=== PATIENT | female | born 1990 | race Two or more races ===

== ENCOUNTER 2017-03-06 06:34 | Emergency (ER) | payer BC ==
[2017-03-06 07:26] VITALS: TEMP 98.2; BMI 29.7
--- NOTE | 2017-03-06 08:13 | PDOC ---
History of Present Illness - General History Source: Patient Exam Limitations: No Limitations - History of Present Illness Initial Comments: 03/06/17 08:52 The patient is a 26 year old female (8 weeks), with no significant past medical history who presents to the emergency department with vaginal bleeding today. Patient reports pink vaginal spotting which began this morning with no associated pain. Patient admits to previous episodes of vaginal bleeding however this feels different and presents to the ED for further evaluation. Patient has been to her family service center director for her bleeding which eventually resolved. Patients next Light Fixture Servicer appointment is next week. Upon evaluation, patients bleeding has stopped. LMP 01/05/17 Patient denies chest pain, headache or dizziness. Patient denies fever, chills, abdominal pain, nausea, vomit, diarrhea or constipation. Patient denies dysuria , frequency, urgency or hematuria. Patient denies sick contacts or recent travel. Allergies: NKA Past surgical history: None Social history: None <Gwendolyn Callahan - Last Filed: 03/06/17 08:52> <Michelle Xie - Last Filed: 03/06/17 10:06> - General Chief Complaint: Vaginal Bleeding Stated Complaint: 8 WEEKS , BLEEDING Time Seen by Provider: 03/06/17 08:13 Past History <Gwendolyn Callahan - Last Filed: 03/06/17 08:52> - Past Medical History COPD: No DVT: No - Reproductive History Is Patient Now?: Yes (#): 2 Para: 0 Therapeutic (s) & number: No Spontaneous : 1 - Immunization History Immunization Up to Date: Yes - Suicide/Smoking/Psychosocial Hx Smoking History: Never smoked Information on smoking cessation initiated: No Hx Alcohol Use: No Drug/Substance Use Hx: No Substance Use Type: None <Michelle Xie - Last Filed: 03/06/17 10:06> - Past Medical History Allergies/Adverse Reactions: Allergies Allergy/AdvReac Type Severity Reaction Status Date / Time No Known Allergies Allergy Verified 03/06/17 07:15 Home Medications: Ambulatory Orders 105/Iron/Folic AC/Dha [Prena1 True Combo Pack] 1 each PO DAILY Review of Systems - Review of Systems Able to Perform ROS?: Yes Comments:: 03/06/17 08:52 GENERAL/CONSTITUTIONAL: No fever or chills. No weakness. HEAD, EYES, EARS, NOSE AND THROAT: No change in vision. No ear pain or discharge. No sore throat. CARDIOVASCULAR: No chest pain or shortness of breath. RESPIRATORY: No cough, wheezing, or hemoptysis. GASTROINTESTINAL: No nausea, vomiting, diarrhea or constipation. GENITOURINARY: No dysuria, frequency, or change in urination. MUSCULOSKELETAL: No joint or muscle swelling or pain. No neck or back pain. SKIN: No rash NEUROLOGIC: No headache, vertigo, loss of consciousness, or change in strength/ sensation. ENDOCRINE: No increased thirst. No abnormal weight change. HEMATOLOGIC/LYMPHATIC: No anemia, easy bleeding, or history of blood clots. ALLERGIC/IMMUNOLOGIC: No hives or skin allergy. : + Grace vaginal spotting. <Gwendolyn Callahan - Last Filed: 03/06/17 08:52> *Physical Exam - Vital Signs Last Vital Signs Temp Pulse Resp BP Pulse Ox 98.2 F 80 17 126/89 100 03/06/17 07:16 03/06/17 07:16 03/06/17 07:16 03/06/17 07:16 03/06/17 07:16 - Physical Exam Comments: 03/06/17 08:52 GENERAL: Awake, alert, and fully oriented, in no acute distress HEAD: No signs of trauma EYES: PERRLA, EOMI, sclera anicteric, conjunctiva clear ENT: Auricles normal inspection, hearing grossly normal, nares patent, oropharynx clear without exudates. Moist mucosa NECK: Normal ROM, supple, no lymphadenopathy, JVD, or masses LUNGS: Breath sounds equal, clear to auscultation bilaterally. No wheezes, and no crackles HEART: Regular rate and rhythm, normal S1 and S2, no murmurs, rubs or gallops ABDOMEN: Soft, nontender, normoactive bowel sounds. No guarding, no rebound. No masses EXTREMITIES: Normal range of motion, no edema. No clubbing or cyanosis. No cords, erythema, or tenderness NEUROLOGICAL: Cranial nerves II through XII grossly intact. Normal speech, normal gait SKIN: Warm, Dry, normal turgor, no rashes or lesions noted. PELVIC: +Small amount of brownish blood in vaginal vault. Cervical oss is closed. No CMT. No adnexal tenderness. <Gwendolyn Callahan - Last Filed: 03/06/17 08:52> - Vital Signs Last Vital Signs Temp Pulse Resp BP Pulse Ox 98.2 F 80 17 126/89 100 03/06/17 07:16 03/06/17 07:16 03/06/17 07:16 03/06/17 07:16 03/06/17 07:16 <Michelle Xie - Last Filed: 03/06/17 10:06> ED Treatment Course - LABORATORY CBC & Chemistry Diagram: 03/06/17 08:40 03/06/17 08:40 <Michelle Xie - Last Filed: 03/06/17 10:06> Medical Decision Making - Medical Decision Making 03/06/17 10:02 Pt presents to the ED complaining of vaginal spotting that started today. Denies abdominal pain, fever, nausea or vomiting or urinary complaints. Os closed on pelvic exam. US performed to rule out ectopic and shows live IUP. Will discharge patient home. She will follow iup with her OB on Friday. <Michelle Xie - Last Filed: 03/06/17 10:06> *DC/Admit/Observation/Transfer - Attestations Scribe Attestion: 03/06/17 08:53 Documentation prepared by Gwendolyn Callahan, acting as medical care administrator for Michelle Xie MD <Gwendolyn Callahan - Last Filed: 03/06/17 08:52> - Discharge Dispostion Admit: No <Michelle Xie - Last Filed: 03/06/17 10:06> Diagnosis at time of Disposition: Threatened - Discharge Dispostion Disposition: HOME Condition at time of disposition: Good - Patient Instructions Printed Discharge Instructions: DI for Threatened Additional Instructions: regresa al ED para dolor de abdomino, sangrando muchisimo, feibre, otros simtomas peor o differente. Debes ir a tu commodity director ranjit viernes.
[2017-03-06 08:55] LABS: EOS % 0.7 % (0-4.5); MCH 27.8 pg (25.7-33.7); MCHC 32.4 g/dl (32.0-36.0); MEAN CELL VOLUME 85.6 fl (80-96); MEAN PLT VOLUME 8.2 fl (7.5-11.1); NEUT % 71.8 % (42.8-82.8); PLATELET COUNT 302 K/MM3 (134-434); RDW 14.8 % (11.6-15.6); WHITE BLOOD COUNT 11.8 K/mm3 (4.0-10.0)
[2017-03-06 08:57] LABS: URINE APPEARANCE SLCLOUDY; URINE BILIRUBIN NEGATIVE (NEGATIVE); URINE BLOOD 2+ (NEGATIVE); URINE COLOR YELLOW; URINE GLUCOSE (UA) NEGATIVE (NEGATIVE); URINE KETONE NEGATIVE (NEGATIVE); URINE LEUK ESTERASE NEGATIVE (NEGATIVE); URINE NITRITE NEGATIVE (NEGATIVE); URINE PROTEIN NEGATIVE (NEGATIVE); URINE UROBILINOGEN NEGATIVE mg/dL (0.2-1.0)
[2017-03-06 09:05] LABS: URINE BACTERIA RARE /hpf (NONE SEEN); URINE MUCUS RARE; URINE RBC <1 /hpf (0-3); URINE WBC 2 /hpf (3-5)
[2017-03-06 09:21] LABS: ALBUMIN 3.6 g/dl (3.4-5.0); ALK PHOS 66 U/L (45-117); ANION GAP 6 (8-16); BILIRUBIN,TOTAL 0.4 mg/dL (0.2-1.0); CALCIUM 8.9 mg/dL (8.5-10.1); CO2 25 mmol/L (21-32); CREATININE 0.7 mg/dL (0.55-1.02); GLUCOSE,RANDOM 82 mg/dL (74-106); SGOT/AST 17 U/L (15-37); SGPT/ALT 31 U/L (12-78); TOT PROT 7.4 g/dl (6.4-8.2)
[2017-03-06 10:26] VITALS: BP 125/74; PULSE 70
[2017-03-06 14:05] LABS: URINE LEUK ESTERASE Negative (NEGATIVE)
== END 2017-03-06 10:30 | disposition home or self-care (01) ==
LOC: JER 06:34
DX: O26.891 Other specified pregnancy related conditions, first trimester (principal); O20.0 Threatened abortion; Z3A.08 8 weeks gestation of pregnancy
CPT/HCPCS: 36415; 76801-TC; 80053; 81003; 81015; 84702; 84703; 85025; 99282-25

== ENCOUNTER 2017-10-01 23:45 | Inpatient (IN) | payer BC, OTHER ==
[2017-10-02 01:03] VITALS: BMI 38.9
[2017-10-02 01:09] LABS: BASO % 0.1 % (0-2.0); EOS % 0.9 % (0-4.5); HEMATOCRIT 31.8 % (32.4-45.2); HEMOGLOBIN 10.9 GM/dL (10.7-15.3); INR 0.96 (0.82-1.09); LYMPH % 18.7 % (8-40); MCH 30.3 pg (25.7-33.7); MCHC 34.1 g/dl (32.0-36.0); MEAN CELL VOLUME 88.9 fl (80-96); MEAN PLT VOLUME 9.3 fl (7.5-11.1); MONO % 8.1 % (3.8-10.2); NEUT % 72.2 % (42.8-82.8); PLATELET COUNT 194 K/MM3 (134-434); PROTHROMBIN TIME (PATIENT) 10.8 SEC (9.7-13.0); RBC 3.58 M/mm3 (3.60-5.2); RDW 14.9 % (11.6-15.6); WHITE BLOOD COUNT 9.3 K/mm3 (4.0-10.0)
[2017-10-02 01:12] LABS: ACTIVATED PTT 27.7 SECONDS (25.2-36.5)
[2017-10-02] MEDS ORDERED: DEXTROSE 5%-NORMAL SALINE 1,000 ML IV ONE (01:15)
[2017-10-02 01:21] LABS: ANION GAP 9 (8-16); BLOOD UREA NITROGEN 9 mg/dL (7-18); CALCIUM 9.6 mg/dL (8.5-10.1); CHLORIDE 107 mmol/L (98-107); CO2 22 mmol/L (21-32); CREATININE 0.7 mg/dL (0.55-1.02); GLUCOSE,RANDOM 110 mg/dL (74-106); SODIUM 138 mmol/L (136-145)
[2017-10-02] MEDS: DEXTROSE 5%-LACTATED RINGERS 1,000 ML IV SCH ×2 (07:15→15:48)
--- NOTE | 2017-10-02 08:51 | HP ---
Past Medical History - Admission History of Present Illness: 27 yo @ 38 4/7 wks by first trimester ultrasound, EDC 10/12/2017 complicated by: 1. Obesity - normal GCT; > 50 lb wt gain sonogram 09/08/17 : 2719g, 61%ile 2. Transfer of care at 16 wks Patient reports leakage of clear fluid. She denies contractions. She reports movement. She denies vaginal bleeding. History Source: Patient Limitations to Obtaining History: No Limitations - Past Medical History Cardiovascular: No: HTN Gastrointestinal: No: GERD ...: 2 ...Para: 0 ...Term: 0 ...: 0 ...Spon : 1 ...Induced : 0 ...Multiple Gestation: 0 ...LMP: 01/05/17 ... Weeks Gestation by Dates: 38.4 ...EDC by Dates: 10/12/17 ...EDC by Sono: 10/13/17 Heme/Onc: No: Anemia - Past Surgical History Past Surgical History: Yes: None Hx Myomectomy: No Hx Transabdominal Cerclage: No - Smoking History Smoking history: Never smoked Have you smoked in the past 12 months: No - Alcohol/Substance Use Hx Alcohol Use: No History of Substance Use: reports: None - Social History Usual Living Arrangement: Yes: With Spouse History of Recent Travel: No Home Medications - Allergies Allergies/Adverse Reactions: Allergies Allergy/AdvReac Type Severity Reaction Status Date / Time No Known Allergies Allergy Verified 10/02/17 00:23 - Home Medications Home Medications: Ambulatory Orders 105/Iron/Folic AC/Dha [Prena1 True Combo Pack] 1 each PO DAILY Family Disease History - Family Disease History Family History: Denies Review of Systems - Review of Systems Constitutional: reports: No Symptoms HENT: reports: No Symptoms Neck: reports: No Symptoms Cardiovascular: reports: No Symptoms Respiratory: reports: No Symptoms Gastrointestinal: reports: No Symptoms Genitourinary: reports: No Symptoms Musculoskeletal: reports: No Symptoms Integumentary: reports: No Symptoms Neurological: reports: No Symptoms Endocrine: reports: No Symptoms Psychiatric: reports: No Symptoms Physical Exam - Maternity Vital Signs: Vital Signs Temperature 98.6 F 10/02/17 08:00 Pulse Rate 105 H 10/02/17 08:00 Respiratory Rate 18 18 08:00 Blood Pressure 130/85 10/02/17 08:00 O2 Sat by Pulse Oximetry (%) Constitutional: Yes: Well Nourished, No Distress, Calm Cardiovascular: Yes: Regular Rate and Rhythm Lungs: Clear to auscultation - Abdominal Exam/OB Number of Fetuses: Single Contractions: No Regularity: Irritability Category: I Accelerations: Non-Uniform Decelerations: None - Vaginal Exam/OB Dilatation (cm): 3-4 Effacement (%): 80 Amniotic Membrane Status: Ruptured Station: -2 - Physical Exam Edema: LLE: Trace, RLE: Trace ...Motor Strength: WNL - Labs Lab Results: CBC, BMP 10/02/17 00:40 10/02/17 00:40 PNL: A psoitive, antiody negative, RPR NR; HBS Ag neg; HCV neg; Rubella immune; HIV neg; GBS neg; GCT WNL Assessment/Plan 27 yo @ 38 + wks PROM 1. Admit to L&D 2. Consents reviewed and signed. Discussed pitocin augmentation. Reviewed risks of intolerance, tachycardia, augmentation failure and delivery. She expressed understanding 3. GBS neg 4. Will offer pain medication upon request 5. Patient chart reports HSV; denies any history of lesions or outbreaks in the past 6. Will proceed with expectant mangement
[2017-10-02] MEDS: OXYTOCIN 30 UNITS in 0.9% NS 30 UNIT/500 ML INFUS.BAG IVPB SCH (09:15)
[2017-10-02] MEDS ORDERED: PROMETHAZINE HCL 25 MG/1 ML VIAL IVPUSH ONE (09:30)
[2017-10-02] MEDS ORDERED: BUTORPHANOL TARTRATE 1 MG/ML VIAL IVPB ONE (09:30)
[2017-10-02] MEDS ORDERED: AMPICILLIN SODIUM 2 GM VIAL ONE (16:11)
[2017-10-02] MEDS ORDERED: AMPICILLIN - 2 GM in SODIUM CHLORIDE 100 ML IVPB ONE (16:15)
[2017-10-02] MEDS ORDERED: PROMETHAZINE HCL 25 MG/1 ML VIAL ONE (19:34)
[2017-10-02] MEDS ORDERED: BUTORPHANOL TARTRATE 1 MG/ML VIAL ONE ×2 (19:34)
--- NOTE | 2017-10-02 19:46 | PN ---
Progress Note (short form) - Note Progress Note: cx 5 cm 80 vx -2 mr, fhr cat 1, regular contraction, wants pain meds
[2017-10-02] MEDS ORDERED: AMPICILLIN SODIUM 1 GM VIAL ONE (20:08)
[2017-10-02] MEDS: AMPICILLIN - 1 GM in SODIUM CHLORIDE 100 ML IVPB SCH (20:30)
[2017-10-02] MEDS ORDERED: FENTANYL/BUPIVACAINE/NS/PF - PCEA - 50 ML DISP.SYRIN EP ONE (22:06)
[2017-10-02] MEDS ORDERED: BUPIVACAINE HCL/PF 0.25% (2.5MG/ML) 10 ML VIAL ONE (22:26)
[2017-10-02] MEDS ORDERED: NALOXONE HCL 0.4 MG/ML VIAL IVPUSH PRN (22:57)
[2017-10-02] MEDS ORDERED: FENTANYL/BUPIVACAINE/NS/PF - PCEA - 50 ML DISP.SYRIN EP SCH (23:00)
--- NOTE | 2017-10-02 23:21 | PN ---
Progress Note (short form) - Note Progress Note: cx 8 cm, 100 vx 0 , mr, fhr cat1, regular contraction
[2017-10-02] MEDS ORDERED: ELECTROLYTE-148 SOLN 1,000 ML IV SCH (23:45)
[2017-10-03] MEDS ORDERED: AMPICILLIN SODIUM 1 GM VIAL ONE (00:14)
[2017-10-03] MEDS: AMPICILLIN - 1 GM in SODIUM CHLORIDE 100 ML IVPB SCH ×4 (00:15→20:03)
[2017-10-03] MEDS ORDERED: LIDOCAINE HCL 1% PRESERVATIVE FREE - 30ML VIAL ONE (00:42)
[2017-10-03] MEDS ORDERED: OXYTOCIN 20 UNITS in 0.9% NS 20 UNIT/1,000 ML INFUS.BAG IV ONE ×3 (00:42→06:21)
[2017-10-03] MEDS ORDERED: PROMETHAZINE HCL 25 MG/1 ML VIAL ONE (01:29)
[2017-10-03] MEDS ORDERED: BUTORPHANOL TARTRATE 1 MG/ML VIAL ONE ×2 (01:29)
[2017-10-03 01:40] LABS: VENOUS PC02 45.8 mmHg (38-52); VENOUS PH 7.3 (7.32-7.42); VENOUS PO2 29.1 mmHg (28-48)
[2017-10-03] MEDS ORDERED: PROMETHAZINE HCL 25 MG/1 ML VIAL IVPB ONE (02:00)
[2017-10-03] MEDS ORDERED: BUTORPHANOL TARTRATE 1 MG/ML VIAL IVPB ONE (02:00)
[2017-10-03] MEDS ORDERED: ceFAZolin SODIUM 1 GM VIAL ONE (02:00)
[2017-10-03] MEDS ORDERED: BENZOCAINE 28 GM HEMORRHOIDAL OINTMENT TP PRN (02:06)
[2017-10-03] MEDS ORDERED: BENZOCAINE 20% 57 GM BOTTLE TP PRN (02:06)
[2017-10-03] MEDS ORDERED: METHYLERGONOVINE MALEATE 0.2 MG/1 ML AMP IM PRN (02:06)
[2017-10-03] MEDS ORDERED: oxyCODONE HCL 5 MG TABLET PO PRN (02:06)
[2017-10-03] MEDS ORDERED: WITCH HAZEL 50% (TUCKS) 40 PAD/JAR PAD TP PRN (02:06)
[2017-10-03] MEDS ORDERED: BISACODYL 10 MG SUPP.RECT RC PRN (02:06)
[2017-10-03] MEDS ORDERED: ceFAZolin 2 GRAM PREMIX BAG IVPB SCH (02:15)
[2017-10-03] MEDS ORDERED: CEFAZOLIN 2 GM/D5W 2 GM/50 ML ML IVPB ONE (02:15)
[2017-10-03] MEDS ORDERED: OXYTOCIN 20 UNITS in 0.9% NS 20 UNIT/1,000 ML INFUS.BAG IV SCH (02:15)
[2017-10-03] MEDS ORDERED: D5W-LR W/ 20 UNITS OXYTOCIN 20 UNIT/1,000 ML INFUS.BAG IV SCH (02:15)
[2017-10-03] MEDS: IBUPROFEN 600 MG TABLET (FP) PO PRN ×3 (07:15→21:39)
[2017-10-03] MEDS: ACETAMINOPHEN 325 MG TABLET (FP) PO PRN ×3 (07:16→21:39)
[2017-10-03 07:26] LABS: BASO % 0.4 % (0-2.0); HEMATOCRIT 28.5 % (32.4-45.2); HEMOGLOBIN 9.8 GM/dL (10.7-15.3); LYMPH % 5.5 % (8-40); MCH 30.4 pg (25.7-33.7); MCHC 34.6 g/dl (32.0-36.0); MEAN CELL VOLUME 87.9 fl (80-96); MEAN PLT VOLUME 8.8 fl (7.5-11.1); MONO % 7.3 % (3.8-10.2); NEUT % 86.8 % (42.8-82.8); PLATELET COUNT 204 K/MM3 (134-434); RBC 3.24 M/mm3 (3.60-5.2); RDW 14.5 % (11.6-15.6); WHITE BLOOD COUNT 15.1 K/mm3 (4.0-10.0)
--- NOTE | 2017-10-03 08:16 | PN ---
Delivery - Delivery Vaginal Delivery: Spontaneous (cx fully dilated ,head on pernium, head deliverd , nasopharynx suctione, ant, and post. shoulder delivered with no difficulty , 9/9 , placenta complete, spontaneous , second degree RT vaginal wall laceration was noted , extending to mid vagina, difficult to see because of bleeding , bleeding controlled with sevral suture of interrupted 2.0 chromic .smal 2 cm laceration LT labia inner mucosa repaired with interupted suture, tolorated procedure well, VS stable, no active vaginal bleeding seen) Type of Anesthesia: Local, Epidural Episiotomy/Laceration: 2nd degree EBL (cc): 700 Delivery, Single - Stages of Labor Date 1st Stage Initiatied: 10/02/17 Time 1st Stage Initiated: 09:15 Date 2nd Stage Initiated: 10/02/17 Time 2nd Stage Initiated: 22:30 Date of Delivery: 10/03/17 Time of Delivery: 00:46 Time Placenta Delivered: 00:50 - Condition of Resort Desk Clerk/Social Services Technician Present: No Gender: Female Weight: 7 lb 13 oz Position: Left, OA Total Hours ROM (Hrs/Mins): 26 HOURS/50 MINUTES - 1 Minute Total Score: 9 5 Minutes Total Score: 9 - Feeding Plan Initial Plan: Elected not to breastfeed exclusively throughout hospitalization
--- NOTE | 2017-10-03 08:19 | PN ---
Progress Note (short form) - Note Progress Note: ppd o doing well, no active vaginal bleeding, no pain Current Medications Generic Name Dose Route Start Last Admin Trade Name Freq PRN Reason Stop Dose Admin Acetaminophen 650 mg 10/03/17 02:06 10/03/17 07:16 Tylenol - PO 650 mg Q3H PRN Administration FEVER Benzocaine 1 spray 10/03/17 02:06 Americaine 20% [place] - TP PRN PRN Pain - Topical Benzocaine 1 applic 10/03/17 02:06 Americaine Ointment - TP PRN PRN Pain - Topical Bisacodyl 10 mg 10/03/17 02:06 Dulcolax Suppository - RC PRN PRN CONSTIPATION Cefazolin Sodium/Dextrose 2 gm 10/03/17 02:15 Ancef 2 Gm Premixed Ivpb - IVPB 10/04/17 02:14 LD NICK Diphtheria/Tetanus/Acell Pertussis 0.5 ml 10/04/17 10:00 Boostrix - IM 10/04/17 10:01 .ONCE ONE Fentanyl/Bupivacaine/Sodium Chlor 50 ml 10/02/17 23:00 10/02/17 22:30 Bupivicaine 0.125%/Fentanyl 2mcg/Ml Pcea EP 50 ml ASDIR NICK Administration Protocol Ferrous Sulfate 325 mg 10/03/17 10:00 Feosol - PO BID NICK Dextrose/Lactated Ringer's 1,000 mls @ 125 mls/hr 10/02/17 07:15 10/02/17 15: 48 D5-Lr - IV 125 mls/hr ASDIR NICK Administration Oxytocin/Sodium Chloride 30 unit in 500 mls @ 1 mls/hr 10/02/17 09:00 21:30 Normal Saline+30 Units Oxytocin IVPB 0.96 unit/hr TITR NICK 16 mls/hr Titration Protocol 0.06 UNIT/HR Ampicillin Sodium 1 gm/ Sodium 100 mls @ 200 mls/hr 10/02/17 20:30 10/03/17 00:15 Chloride IVPB 200 mls/hr Q4H NICK Administration Protocol Parenteral Electrolytes 1,000 mls @ 125 mls/hr 10/02/17 23:45 10/02/17 22:30 Plasma-Lyte 148 - IV 125 mls/hr ASDIR NICK Administration Dextrose/Lactated Ringer's 20 unit in 1,000 mls @ 125 mls/hr 10/03/17 02:15 Pitocin 20 Units In D5-Lr - IV 10/03/17 10:14 ASDIR [facility] Oxytocin/Sodium Chloride 20 unit in 1,000 mls @ 125 mls/hr 10/03/17 02:15 Normal Saline+20 Units Oxytocin - IV ASDIR [facility] Ibuprofen 600 mg 10/03/17 02:06 10/03/17 07:15 Motrin - PO 600 mg Q4H PRN Administration PAIN LEVEL 1-5 Methylergonovine Maleate 0.2 mg 10/03/17 02:06 Methergine Injection - IM Q4H PRN EXCESSIVE BLEEDING (L&D) Naloxone HCl 0.4 mg 10/02/17 22:57 Narcan - IVPUSH PRN PRN Sedation Oxycodone HCl 5 mg 10/03/17 02:06 Roxicodone - PO Q4H PRN PAIN LEVEL 6-10 Multivit/Folic Acid/Iron 1 tab 10/03/17 10:00 Vitamins (Sjr) - PO DAILY [facility] Senna/Docusate Sodium 2 tablet 10/04/17 22:00 Pericolace - PO HS PRN CONSTIPATION Witch Tere/Glycerin 1 pad 10/03/17 02:06 Tucks Pads - TP PRN PRN Pain - Topical CBC, BMP 10/03/17 07:05 10/02/17 00:40 Last Vital Signs Temp Pulse Resp BP Pulse Ox 98.9 F 97 H 20 106/50 98 10/03/17 04:20 10/03/17 04:20 10/03/17 04:20 10/03/17 04:20 10/03/17 03:00 abdomen soft, non tender. uterus firm, non tender starks removed no active vaginal bleeding seen perineum intact no calf tenderness impression, doining well, no bleeding,seen H&H stable plan ambulate , pain management
[2017-10-03] MEDS: DEXTROSE 5%-LACTATED RINGERS 1,000 ML IV SCH (08:48)
[2017-10-03] MEDS: PRENATAL VITAMINS W/ FOLIC ACID TABLET (FP) PO SCH (09:19)
[2017-10-03] MEDS: FERROUS SO4 325 MG TABLET (FP) PO SCH ×2 (09:19→21:39)
[2017-10-03] MEDS: OXYTOCIN 30 UNITS in 0.9% NS 30 UNIT/500 ML INFUS.BAG IVPB SCH (20:02)
[2017-10-04] MEDS: ACETAMINOPHEN 325 MG TABLET (FP) PO PRN ×5 (04:35→22:21)
[2017-10-04] MEDS: IBUPROFEN 600 MG TABLET (FP) PO PRN ×5 (04:36→22:20)
[2017-10-04 07:59] LABS: BASO % 0.4 % (0-2.0); EOS % 0.8 % (0-4.5); HEMATOCRIT 25.7 % (32.4-45.2); HEMOGLOBIN 8.6 GM/dL (10.7-15.3); LYMPH % 20.1 % (8-40); MCH 30.1 pg (25.7-33.7); MCHC 33.6 g/dl (32.0-36.0); MEAN CELL VOLUME 89.7 fl (80-96); MEAN PLT VOLUME 8.6 fl (7.5-11.1); MONO % 5.8 % (3.8-10.2); NEUT % 72.9 % (42.8-82.8); PLATELET COUNT 215 K/MM3 (134-434); RBC 2.86 M/mm3 (3.60-5.2); RDW 14.9 % (11.6-15.6); WHITE BLOOD COUNT 14.3 K/mm3 (4.0-10.0)
[2017-10-04] MEDS: PRENATAL VITAMINS W/ FOLIC ACID TABLET (FP) PO SCH (09:36)
[2017-10-04] MEDS: FERROUS SO4 325 MG TABLET (FP) PO SCH ×2 (09:36→21:04)
[2017-10-04] MEDS ORDERED: DIPHTH,PERTUSS(ACELL),TET 0.5 ML DISP.SYRIN IM ONE (10:00)
--- NOTE | 2017-10-04 11:48 | PN ---
Post Progress Note - Subjective Subjective: No complaints. Bleeding/lochia is light Post Day: 1 Type of Delivery: Vital Signs: Vital Signs Temperature 98.6 F 10/04/17 08:44 Pulse Rate 105 H 10/04/17 08:44 Respiratory Rate 18 10/04/17 08:44 Blood Pressure 128/78 10/04/17 08:44 O2 Sat by Pulse Oximetry (%) 98 10/03/17 03:00 Breast Exam: Yes: Soft Uterus: Yes: Fundus Firm, Fundus below umbilicus, Non-tender Abdomen/GI: Yes: Abdomen soft, Passing flatus, Tolerating PO Lochia: Yes: Rubra Lochia, amount: Small Extremities: Yes: Calves non-tender, Edema Perineum: Yes: Intact, Laceration (repair intact) Activity: Ambulating - Labs Labs: CBC WBC 14.3 K/mm3 (4.0-10.0) H 10/04/17 07:41 RBC 2.86 M/mm3 (3.60-5.2) L 10/04/17 07:41 Hgb 8.6 GM/dL (10.7-15.3) L 10/04/17 07:41 Hct 25.7 % (32.4-45.2) L 10/04/17 07:41 MCV 89.7 fl (80-96) 10/04/17 07:41 MCH 30.1 pg (25.7-33.7) 10/04/17 07:41 MCHC 33.6 g/dl (32.0-36.0) 10/04/17 07:41 RDW 14.9 % (11.6-15.6) 10/04/17 07:41 Plt Count 215 K/MM3 (134-434) 10/04/17 07:41 MPV 8.6 fl (7.5-11.1) 10/04/17 07:41 Absolute Neuts (auto) 10.4 # 10/04/17 07:41 Neutrophils % 72.9 % (42.8-82.8) 10/04/17 07:41 Lymphocytes % 20.1 % (8-40) D 10/04/17 07:41 Monocytes % 5.8 % (3.8-10.2) 10/04/17 07:41 Eosinophils % 0.8 % (0-4.5) D 10/04/17 07:41 Basophils % 0.4 % (0-2.0) 10/04/17 07:41 Nucleated RBC % 0 % (0-0) 10/04/17 07:41 Assessment/Plan 27yo P1 s/p , doing well stable, afebrile. Asymptomatic for anemia. care instructions reviewed. Continue routine care. Ambulation encouraged Discharge instruction reviewed.
--- NOTE | 2017-10-04 11:52 | DS ---
Physical Exam-FIGURE MODEL Vital Signs: Vital Signs Temperature 98.6 F 10/04/17 08:44 Pulse Rate 105 H 10/04/17 08:44 Respiratory Rate 18 10/04/17 08:44 Blood Pressure 128/78 10/04/17 08:44 O2 Sat by Pulse Oximetry (%) 98 10/03/17 03:00 Constitutional: Yes: Well Nourished, No Distress, Calm Eyes: Yes: WNL, Conjunctiva Clear HENT: Yes: WNL, Atraumatic, Normocephalic Neck: Yes: WNL, Supple, Trachea Midline Cardiovascular: Yes: WNL, Regular Rate and Rhythm Respiratory: Yes: WNL, Regular, CTA Bilaterally Gastrointestinal: Yes: Normal Bowel Sounds, Soft, Abdomen, Obese ...Rectal Exam: Yes: Deferred Renal/: Yes: WNL Internal Exam Deferred: Yes ....Post : Yes: Uterus firm, Uterus non-tender, Slight lochia rubra Breast(s): Yes: WNL Musculoskeletal: Yes: WNL Extremities: Yes: WNL Edema: Yes Edema: LLE: Trace, RLE: Trace Integumentary: Yes: WNL Neurological: Yes: WNL, Alert, Oriented ...Motor Strength: WNL Psychiatric: Yes: WNL, Alert, Oriented Labs: CBC, BMP 10/04/17 07:41 10/02/17 00:40 Delivery - Delivery Vaginal Delivery: Spontaneous (cx fully dilated ,head on pernium, head deliverd , nasopharynx suctione, ant, and post. shoulder delivered with no difficulty , 9/9 , placenta complete, spontaneous , second degree RT vaginal wall laceration was noted , extending to mid vagina, difficult to see because of bleeding , bleeding controlled with sevral suture of interrupted 2.0 chromic .smal 2 cm laceration LT labia inner mucosa repaired with interupted suture, tolorated procedure well, VS stable, no active vaginal bleeding seen) Type of Anesthesia: Local, Epidural Episiotomy/Laceration: 2nd degree EBL (cc): 700 Delivery, Single - Stages of Labor Date 1st Stage Initiatied: 10/02/17 Time 1st Stage Initiated: 09:15 Date 2nd Stage Initiated: 10/02/17 Time 2nd Stage Initiated: 22:30 Date of Delivery: 10/03/17 Time of Delivery: 00:46 Time Placenta Delivered: 00:50 Placenta: Yes: Spontaneous - Condition of Grain Receiver/Concrete Floor Installer Present: No Gender: Female Weight: 3.544 kg Position: Left, OA Total Hours ROM (Hrs/Mins): 26 HOURS/50 MINUTES - 1 Minute Total Score: 9 5 Minutes Total Score: 9 - [place] Feeding Plan Initial Plan: Elected not to breastfeed exclusively throughout hospitalization Discharge Summary Reason For Visit: ADMIT Spontaneous labor at 38w4d Procedures: Principal: Hospital Course: Normal recovery Condition: Good - Instructions Diet, Activity, Other Instructions: Physical activity Resume your normal everyday activity as tolerated no heavy lifting or exercise until seen by your surgeon. You may walk unlimited tez of and climb stairs. You may resume driving the car when you feel safe and comfortable behind the wheel. No sexual activity as instructed. Wound care If you have a bandage, leave it on, and keep dry for 48-72 hours. After that time discard the outer bandage. If they are tapes on the skin under the out of bandage leave them in place. They will peel off in the next 7 to 10 days. Do Not Peel them off. You may shower the day after surgery. If there are tapes present on the skin, you may shower over them. Diet There are no dietary restrictions. Eat healthy, high-fiber foods. Drink 6 to 8 glasses of liquid each day. This will assist in keeping your bowels are regular. Pain management You may take Tylenol or acetaminophen or Ibuprofen (for example, Motrin, Advil etc.) from my pain prescription medication is ordered should be taken as prescribed for moderate to severe pain. Call MD for any of the following: Severe pain not relieved by medication Fever of 101 or higher Excessive bleeding or drainage on dressing Inability to urinate Referrals: Izabela Gauthier MD [Staff Physician] - Disposition: HOME - Home Medications Comprehensive Discharge Medication List: Ambulatory Orders 105/Iron/Folic AC/Dha [Prena1 True Combo Pack] 1 each PO DAILY
[2017-10-04 21:06] VITALS: TEMP 98
[2017-10-04] MEDS ORDERED: SENNOSIDES/DOCUSATE COMBO (SENNA PLUS) TABLET (UD) PO PRN (22:00)
[2017-10-05] MEDS: ACETAMINOPHEN 325 MG TABLET (FP) PO PRN ×2 (05:09→08:16)
[2017-10-05] MEDS: IBUPROFEN 600 MG TABLET (FP) PO PRN ×2 (05:10→08:15)
[2017-10-05] MEDS: PRENATAL VITAMINS W/ FOLIC ACID TABLET (FP) PO SCH (09:38)
[2017-10-05] MEDS: FERROUS SO4 325 MG TABLET (FP) PO SCH (09:38)
[2017-10-05 13:03] VITALS: BP 131/80; PULSE 93
== END 2017-10-05 11:50 | disposition home or self-care (01) | DRG 775 ==
LOC: JLDR 23:45 → J3W 10-03 04:15
PROVIDERS: ADMIT Obstetrics & Gynecology; ATTEND Obstetrics & Gynecology
PROC: 10E0XZZ Delivery of Products of Conception, External Approach (ICD-10-PCS; principal; 2017-10-01)
PROC: 0KQM0ZZ Repair Perineum Muscle, Open Approach (ICD-10-PCS; 2017-10-01)
PROC: 0HQ9XZZ Repair Perineum Skin, External Approach (ICD-10-PCS; 2017-10-01)
DX: O42.02 Full-term premature rupture of membranes, onset of labor within 24 hours of rupture (principal); O70.1 Second degree perineal laceration during delivery; O70.0 First degree perineal laceration during delivery; Z3A.38 38 weeks gestation of pregnancy; Z37.0 Single live birth
CPT/HCPCS: 36415; 59409; 80048; 82803; 85025; 85610; 85730; 86593; 86850; 86900; 86901; 90715

== ENCOUNTER 2022-06-25 09:25 | Emergency (ER) | payer BC, OTHER ==
[2022-06-25 09:33] VITALS: RESP 18; BMI 32.8
[2022-06-25] MEDS ORDERED: ACETAMINOPHEN 500 MG TABLET (FP) PO ONE (09:48)
[2022-06-25] MEDS ORDERED: ACETAMINOPHEN 500 MG TABLET (FP) ONE (10:04)
[2022-06-25] MEDS ORDERED: DEXAMETHASONE SOD PHOSPHATE 10 MG/1 ML VIAL PO ONE (10:05)
[2022-06-25] MEDS ORDERED: DEXAMETHASONE SOD PHOSPHATE 10 MG/1 ML VIAL ONE (10:07)
[2022-06-25] MEDS ORDERED: AMOXICILLIN 500 MG CAPSULE (FP) PO ONE (11:29)
[2022-06-25 11:51] VITALS: BP 110/76; PULSE 94; TEMP 98.9
[2022-06-25] MEDS ORDERED: AMOX TR/POT CLAV 500MG/125MG TABLETS (FP) ONE (11:53)
== END 2022-06-25 12:23 | disposition home or self-care (01) ==
LOC: JERFT 09:25
PROC: 3E023GC Introduction of Other Therapeutic Substance into Muscle, Percutaneous Approach (ICD-10-PCS; principal; 2022-06-25)
DX: J02.0 Streptococcal pharyngitis (principal); M79.10 Myalgia, unspecified site; R07.0 Pain in throat; R05.1 Acute cough; R50.9 Fever, unspecified; R51.9 Headache, unspecified; Z20.822 Contact with and (suspected) exposure to COVID-19
CPT/HCPCS: 0241U-QW; 87651; 99284-25; J1100